=== PATIENT | female | born 1950 | race Caucasian/White ===

== ENCOUNTER 2020-06-14 17:22 | Emergency (ER) | payer OTHER ==
[~2020-06-14] VITALS: Ht 160 cm; Wt 49.9 kg
[2020-06-14 17:25] VITALS: BP_SYST 207
[2020-06-14] MEDS ORDERED: cloNIDine HCL 0.1 MG TABLET PO ONE (18:00)
[2020-06-14] MEDS ORDERED: KETOROLAC TROMETHAMINE 30 MG VIAL IM ONE (18:00)
[2020-06-14] MEDS ORDERED: HYDROcodone/ACETAMIN 7.5-325 MG TAB PO ONE (18:00)
[2020-06-14 18:21] LABS: BILIRUBIN,URINE NEGATIVE (NEGATIVE); BLOOD, URINE NEGATIVE (NEGATIVE); CLARITY/URINE CLEAR (CLEAR); COLOR,URINE YELLOW (YELLOW); GLUCOSE,URINE NEGATIVE (NEGATIVE); KETONES,URINE NEGATIVE (NEGATIVE); LEUKOCYTE ESTERASE ,URINE NEGATIVE (NEGATIVE); NITRITE, URINE NEGATIVE (NEGATIVE); PROTEIN URINE NEGATIVE (NEGATIVE); UROBILINOGEN,URINE 0.2 (0.2-1.0)
[2020-06-14 18:26] LABS: BASOPHILS # (AUTO) 0.1 K/uL (0.0-0.2); EOSINOPHILS # (AUTO) 0.3 K/uL (0.0-0.4); EOSINOPHILS % (AUTO) 3.9 % (0.0-4.0); HEMATOCRIT 39.3 % (36-48); HEMOGLOBIN 13.6 g/dL (12.0-16.0); LYMPHOCYTES # (AUTO) 2.3 K/uL (1.0-5.5); LYMPHOCYTES % (AUTO) 32.3 % (20.5-51.5); MEAN CORPUSCULAR HEMOGLOBIN 34 pg (27-31); MEAN CORPUSCULAR HGB CONC 35 % (32-36); MEAN CORPUSCULAR VOLUME 99 fL (79.0-98.0); MONOCYTES # (AUTO) 0.4 K/uL (0.0-1.0); MONOCYTES % (AUTO) 5.9 % (1.7-9.3); NEUTROPHILS # (AUTO) 4.1 K/uL (1.8-7.7); NEUTROPHILS % (AUTO) 56.9 % (40.0-70.0); PLATELET COUNT (AUTO) 292 K/uL (130-430); RED BLOOD CELL COUNT(AUTO) 3.99 MIL/uL (4.2-6.2); RED CELL DISTRIBUTION WIDTH 15.1 % (9.0-15.0); WHITE BLOOD COUNT (AUTO) 7.2 K/uL (4.8-10.8)
[2020-06-14 18:45] LABS: CALCIUM 8.7 mg/dL (8.4-11.0); CREATININE 0.9 mg/dL (0.55-1.30); POTASSIUM 3.8 mmol/L (3.5-5.1)
[2020-06-14 18:49] LABS: PROTHROMBIN TIME 9.8 SECS (9.5-12.5)
[2020-06-14 18:51] LABS: ALBUMIN 3.6 g/dL (3.4-4.8); TOTAL BILIRUBIN 0.2 mg/dL (0.0-1.0)
[2020-06-14 20:00] VITALS: BP_SYST 164
[2020-06-14] MEDS ORDERED: ALBMDI INH (20:16)
== END 2020-06-14 20:00 | disposition home or self-care (01) ==
LOC: SED 17:22
DX: M54.5 Low back pain (principal); I16.0 Hypertensive urgency; Z88.6 Allergy status to analgesic agent; R94.31 Abnormal electrocardiogram [ECG] [EKG]
CPT/HCPCS: 36415; 71045; 80053; 81003; 83880; 84484; 85025; 85610; 85730; 93005; 96372; 99285; J1885

== ENCOUNTER 2020-10-18 22:38 | Emergency (ER) | payer OTHER, SELFPAY ==
[~2020-10-18] VITALS: Ht 160 cm; Wt 53.5 kg
[~2020-10-18 22:38] MED LIST: ALBMDI INH
[2020-10-18 22:57] VITALS: BP_SYST 172
[2020-10-19] MEDS ORDERED: NACL 0.9% 1,000 ML IV ONE (00:45)
[2020-10-19 00:54] LABS: BASOPHILS # (AUTO) 0.1 K/uL (0.0-0.2); BASOPHILS % (AUTO) 0.6 % (0.0-2.0); EOSINOPHILS # (AUTO) 0.2 K/uL (0.0-0.4); EOSINOPHILS % (AUTO) 2.2 % (0.0-4.0); HEMATOCRIT 44.2 % (36-48); HEMOGLOBIN 15.1 g/dL (12.0-16.0); LYMPHOCYTES # (AUTO) 2.1 K/uL (1.0-5.5); LYMPHOCYTES % (AUTO) 22.5 % (20.5-51.5); MEAN CORPUSCULAR HEMOGLOBIN 34 pg (27-31); MEAN CORPUSCULAR HGB CONC 34 % (32-36); MEAN CORPUSCULAR VOLUME 98 fL (79.0-98.0); MONOCYTES # (AUTO) 0.5 K/uL (0.0-1.0); MONOCYTES % (AUTO) 5.7 % (1.7-9.3); NEUTROPHILS # (AUTO) 6.3 K/uL (1.8-7.7); PLATELET COUNT (AUTO) 249 K/uL (130-430); RED CELL DISTRIBUTION WIDTH 13.1 % (9.0-15.0); WHITE BLOOD COUNT (AUTO) 9.1 K/uL (4.8-10.8)
[2020-10-19] MEDS ORDERED: HALOPERIDOL LACTATE 5 MG/ML VIAL IM ONE (01:00)
[2020-10-19 01:01] LABS: POTASSIUM 4.1 mmol/L (3.5-5.1)
[2020-10-19 01:05] LABS: PROTHROMBIN TIME 9.9 SECS (9.5-12.5)
[2020-10-19 01:12] LABS: ANION GAP 9 (5-15); CALCIUM 9.6 mg/dL (8.4-11.0); CHLORIDE 104 mmol/L (98-107); CREATININE 0.83 mg/dL (0.55-1.30); GLUCOSE 67 mg/dL (70-99); SODIUM SERUM 145 mmol/L (136-145); UREA NITROGEN, BLOOD 23 mg/dL (8-21)
[2020-10-19 01:18] LABS: ALANINE AMINOTRANSFERASE 23 U/L (12-78); ALBUMIN 3.8 g/dL (3.4-4.8); ALCOHOL, BLOOD 21 mg/dL (<10); ASPARTATE AMINOTRANSFERASE 20 U/L (10-37); TOTAL BILIRUBIN 0.1 mg/dL (0.0-1.0)
[2020-10-19 01:20] LABS: ACETAMINOPHEN < 1 ug/mL (1-30); GFR AFRICAN AMERICAN 88 mL/min (>90)
[2020-10-19] MEDS ORDERED: LORazepam 2 MG/ML VIAL IVP ONE (01:30)
[2020-10-19 01:34] LABS: BILIRUBIN,URINE NEGATIVE (NEGATIVE); CLARITY/URINE CLEAR (CLEAR); COLOR,URINE YELLOW (YELLOW); GLUCOSE,URINE NEGATIVE (NEGATIVE); KETONES,URINE NEGATIVE (NEGATIVE); LEUKOCYTE ESTERASE ,URINE NEGATIVE (NEGATIVE); NITRITE, URINE NEGATIVE (NEGATIVE); PROTEIN URINE NEGATIVE (NEGATIVE); UROBILINOGEN,URINE 0.2 (0.2-1.0)
[2020-10-19 01:36] LABS: BLOOD, URINE TRACE (NEGATIVE)
[2020-10-19 01:37] LABS: BACTERIA,URINE FEW /HPF (None Seen); WBC,URINE 0-3 /HPF (0-3)
[2020-10-19 01:47] LABS: BARBITURATE, URINE NEGATIVE (NEG <=200); BENZODIAZEPINE, URINE NEGATIVE (NEG <=150); CANNABINOID, URINE NEGATIVE (NEG <=50); COCAINE, URINE NEGATIVE (NEG <=150); METHAMPHETAMINES SCREEN,URINE NEGATIVE (NEG <=500); OPIATE, URINE NEGATIVE (NEG <=100); PHENCYCLIDINE SCREEN,URINE NEGATIVE (NEG <=25); UR TRICYCLIC ANTIDEPRESSANTS NEGATIVE (NEG <=300); URINE AMPHETAMINE NEGATIVE (NEG <=500); URINE METHADONE NEGATIVE (NEG <=200); URINE OXYCODONE SCREEN NEGATIVE (NEG <=100); URINE PROPOXYPHENE SCREEN NEGATIVE (NEG <=300)
[2020-10-19 11:10] VITALS: BP_SYST 123
== END 2020-10-19 11:12 | disposition home or self-care (01) ==
LOC: SED 22:38
DX: F41.9 Anxiety disorder, unspecified (principal); M54.9 Dorsalgia, unspecified; R31.29 Other microscopic hematuria; Z88.5 Allergy status to narcotic agent; Z79.899 Other long term (current) drug therapy; Z20.822 Contact with and (suspected) exposure to COVID-19
CPT/HCPCS: 36415; 80053; 80307; 81000; 82550; 84484; 85025; 85610; 85730; 87426; 93005; 96361; 96372; 96374; 99284; G0480; G0482; J1630; J2060; J7030